=== PATIENT | male | born 1990 | race Caucasian/White ===

== ENCOUNTER 2019-10-10 18:23 | Emergency (ER) | payer OTHER ==
--- NOTE | 2019-10-10 18:26 | EDM.PDOC ---
ED HPI GENERAL MEDICAL PROBLEM - General Chief Complaint: Laceration Stated Complaint: FELL ON HIS RIGHT KNEE Time Seen by Provider: 10/10/19 18:26 Source of Information: Reports: Patient History Limitations: Reports: No Limitations - History of Present Illness INITIAL COMMENTS - FREE TEXT/NARRATIVE: HISTORY AND PHYSICAL: History of present illness: Patient is a 29-year-old male with right BTK amputation presents to the ED With complaint of right knee injury. Patient states he was washing his truck when he slipped and landed on his right knee and stump on a grate. Patient sustained a cut to the stump and states he is having shooting pains going up his leg. He had a revision to the BTKA in [facility] approximately 6 weeks ago. He is UTD on tetanus. Review of systems: As per history of present illness and below otherwise all systems reviewed and negative. Past medical history: As per history of present illness and as reviewed below otherwise noncontributory. Surgical history: As per history of present illness and as reviewed below otherwise noncontributory. Social history: No reported history of drug or alcohol abuse. Family history: As per history of present illness and as reviewed below otherwise noncontributory. Physical exam: General: Patient sitting comfortably in no acute distress and nontoxic appearing HEENT: Atraumatic, normocephalic, pupils reactive, negative for conjunctival pallor or scleral icterus, mucous membranes moist, throat clear, neck supple, nontender, trachea midline. No meningeal signs. Extremities: Right BTKA with a well healed incision site. There is a 1x1 cm laceration to the distal part of the stump. negative for cords or calf pain. Neurovascular unremarkable. Neuro: Awake, alert, oriented. Cranial nerves II through XII unremarkable. Cerebellum unremarkable. Motor and sensory unremarkable throughout. Exam nonfocal. Notes: Dr. Spicer, orthopedics, to the ED for wound care. Diagnostics: x-ray right knee Therapeutics: Toradol 60mg IM Prescriptions: Keflex Impression: Right leg injury Plan: Take antibiotic as instructed Follow up with Dr. Keyes in his office tomorrow (10/11/19) at 10am Return to ED as needed as discussed Definitive disposition and diagnosis as appropriate pending reevaluation and review of above. right leg Pain Score (Numeric/FACES): 5 - Related Data Allergies Allergy/AdvReac Type Severity Reaction Status Date / Time No Known Allergies Allergy Verified 10/10/19 18:24 Home Meds: Home Meds Bipolar Medication 10/10/19 [History] Cephalexin [Keflex] 500 mg PO BID 10 Days #20 capsule 10/10/19 [Rx] Hydrocodone/Acetaminophen [Hydrocodon-Acetaminoph 7.5-300] 10/10/19 [History] Testosterone [Androderm] 10/10/19 [History] ED ROS GENERAL - Review of Systems Review Of Systems: Comprehensive ROS is negative, except as noted in HPI. ED EXAM, SKIN/RASH Exam: See Below (see dictation) Exam Limited By: No Limitations General Appearance: Alert, WD/WN, No Apparent Distress Ears: Normal External Exam, Normal Canal, Hearing Grossly Normal, Normal TMs Nose: Normal Inspection, Normal Mucosa, No Blood Throat/Mouth: Normal Inspection, Normal Lips, Normal Teeth, Normal Gums, Normal Oropharynx, Normal Voice, No Airway Compromise Head: Atraumatic, Normocephalic Neck: Normal Inspection, Supple, Non-Tender, Full Range of Motion Respiratory/Chest: No Respiratory Distress, Lungs Clear, Normal Breath Sounds, No Accessory Muscle Use, Chest Non-Tender Cardiovascular: Normal Peripheral Pulses, Regular Rate, Rhythm, No Edema, No Gallop, No JVD, No Murmur, No Rub GI/Abdominal: Normal Bowel Sounds, Soft, Non-Tender, No Organomegaly, No Distention, No Abnormal Bruit, No Mass (Male) Exam: No Hernia, Normal Inspection, Normal Prostate, Circumcised Rectal (Males) Exam: Normal Exam, Normal Rectal Tone, Prostate Normal Back Exam: Normal Inspection, Full Range of Motion, NT Extremities: Normal Inspection, Normal Range of Motion, Non-Tender, No Pedal Edema, Normal Capillary Refill Neurological: Alert, Oriented, CN II-XII Intact, Normal Cognition, Normal Gait, Normal Reflexes, No Motor/Sensory Deficits Psychiatric: Normal Affect, Normal Mood Lymphatic: No Adenopathy Course - Vital Signs Last Recorded V/S: Last Vital Signs Temp 97.1 F 10/10/19 18:26 Pulse 83 10/10/19 18:26 Resp 18 10/10/19 18:26 BP 131/98 H 10/10/19 18:26 Pulse Ox 97 10/10/19 18:26 - Orders/Labs/Meds Meds: Medications Discontinued Medications Generic Name Dose Route Start Last Admin Trade Name Ankur PRN Reason Stop Dose Admin Ketorolac Tromethamine 60 mg 10/10/19 19:10 10/10/19 19:19 Toradol IM 10/10/19 19:11 60 mg ONETIME ONE Administration Lidocaine HCl 5 ml 10/10/19 19:03 10/10/19 19:19 Xylocaine-Mpf 1% INJECT 10/10/19 19:04 5 ml ONETIME ONE Administration Departure - Departure Time of Disposition: 20:28 Disposition: Home, Self-Care 01 Condition: Good Clinical Impression: Right leg injury, Leg wound, right - Discharge Information Prescriptions: Cephalexin [Keflex] 500 mg PO BID 10 Days #20 capsule Forms: ED Department Discharge Additional Instructions: The following information is given to patients seen in the emergency department who are being discharged to home. This information is to outline your options for follow-up care. We provide all patients seen in our emergency department with a follow-up referral. The need for follow-up, as well as the timing and circumstances, are variable depending upon the specifics of your emergency department visit. If you don't have a primary care physician on staff, we will provide you with a referral. We always advise you to contact your personal physician following an emergency department visit to inform them of the circumstance of the visit and for follow-up with them and/or the need for any referrals to a consulting specialist. The emergency department will also refer you to a specialist when appropriate. This referral assures that you have the opportunity for follow-up care with a specialist. All of these measure are taken in an effort to provide you with optimal care, which includes your follow-up. Under all circumstances we always encourage you to contact your private physician who remains a resource for coordinating your care. When calling for follow-up care, please make the office aware that this follow-up is from your recent emergency room visit. If for any reason you are refused follow-up, please contact the [facility] Emergency Department at and asked to speak to the emergency department charge nurse. [facility] [address] [place] [address] [id number] [place] [address] Take antibiotic as instructed Follow up with Dr. Keyes in his office tomorrow (10/11/19) at 10am Return to ED as needed as discussed Sepsis Event Note - Focused Exam Vital Signs: Vital Signs Temp Pulse Resp BP Pulse Ox 10/10/19 18:26 97.1 F 83 18 131/98 H 97 Date Exam was Performed: 10/10/19 Time Exam was Performed: 20:26
[2019-10-10] MEDS ORDERED: Ketorolac 60 MG/2 ML SDV IM ONE (19:10)
--- NOTE | 2019-10-10 19:30 | CR ---
INDICATION: Fall. Laceration. COMPARISON: None. FINDINGS/IMPRESSION: Right knee, three views. Status post [id number] amputation. No acute fracture or dislocation identified. Dictated by Prince Ryan MD @ 10/10/2019 7:28:24 PM Dictated by: Prince Ryan MD @ 10/10/2019 19:29:34 (Electronically Signed)
--- NOTE | 2019-10-12 09:40 | PCM.CONS ---
H&P History of Present Illness - General Date of Service: 10/10/19 Admit Problem/Dx: 29 yo male fell on right knee Source of Information: Patient, Provider, RN History Limitations: Reports: No Limitations - History of Present Illness Onset of Symptoms: Reports: Today, Sudden Duration of Symptoms: Reports: Hour(s): Location: Reports: Lower Extremity, Right Quality: Reports: Ache, Stabbing, Throbbing Severity: Moderate Improves with: Reports: Immobilization Worsens with: Reports: Movement Associated Symptoms: Reports: No Other Symptoms right leg Pain Score (Numeric/FACES): 2 - Related Data Allergies/Adverse Reactions: Allergies Allergy/AdvReac Type Severity Reaction Status Date / Time No Known Allergies Allergy Verified 10/11/19 13:14 Home Medications: Home Meds Acetaminophen/HYDROcodone [Roy 325-5 MG] 1 dose PO Q4H #20 tablet 07/24/19 [Rx ] Testosterone 250 mg PO DAILY 07/24/19 [History] Cephalexin [Keflex] 500 mg PO BID 10 Days #20 capsule 10/10/19 [Rx] Hydrocodone/Acetaminophen [Hydrocodon-Acetaminoph 7.5-300] 1 tab PO ASDIRECTED PRN 10/10/19 [History] Testosterone [Androderm] 200 mg IM WEEKLY 10/10/19 [History] ClonazePAM [KlonoPIN] 0.5 mg PO BEDTIME 10/11/19 [History] Sertraline [Zoloft] 50 mg PO QAM 10/11/19 [History] Past Medical History Psychiatric History: Reports: Bipolar - Infectious Disease History Infectious Disease History: Reports: None - Past Surgical History Musculoskeletal Surgical History: Reports: Amputation Other Musculoskeletal Surgeries/Procedures:: arm surgery Social & Family History - Family History Family Medical History: Noncontributory - Tobacco Use Smoking Status *Q: Never Smoker - Recreational Drug Use Recreational Drug Use: No H&P Review of Systems - Review of Systems: Review Of Systems: See Below General: Reports: No Symptoms HEENT: Reports: No Symptoms Pulmonary: Reports: No Symptoms Cardiovascular: Reports: No Symptoms Gastrointestinal: Reports: No Symptoms Genitourinary: Reports: No Symptoms Musculoskeletal: Reports: Leg Pain Skin: Reports: No Symptoms Psychiatric: Reports: No Symptoms Neurological: Reports: No Symptoms Hematologic/Lymphatic: Reports: No Symptoms Immunologic: Reports: No Symptoms Exam - Exam Exam: See Below - Vital Signs Vital Signs: Last Vital Signs Temp 36.2 C 10/10/19 18:26 Pulse 71 10/10/19 20:33 Resp 18 10/10/19 20:33 BP 126/80 10/10/19 20:33 Pulse Ox 96 10/10/19 20:33 Weight: 104.326 kg - Exam General: Alert, Oriented, Cooperative, Mild Distress HEENT: Conjunctiva Clear, Hearing Intact, Mucosa Moist & [place] Neck: Supple, Trachea Midline Lungs: Normal Respiratory Effort GI/Abdominal Exam: No Distention Extremities: Leg Pain, Other Skin: Warm, Wound, Incision Neuro Extensive - Mental Status: Alert, Oriented x3, Normal Mood/Affect, Normal Cognition, Memory Intact Psychiatric: Alert, Normal Affect, Normal Mood (2cm x 1.5 cm area of laceration with skin loss into subcutaneous tissue, recent bka revision six weeks ago) Sepsis Event Note - Evaluation Sepsis Screening Result: No Definite Risk Consult PN Assessment/Plan POD#: 0 Procedures: Procedures COMPLETE CBC W/AUTO DIFF WBC (09/01/19) COMPREHEN METABOLIC PANEL (09/01/19) EMERGENCY DEPT VISIT (07/24/19) MRI JOINT UPR EXTREM W/O DYE (04/12/19) PROTHROMBIN TIME (09/01/19) ROUTINE VENIPUNCTURE (09/01/19) THER/PROPH/DIAG INJ SC/IM (07/24/19) THROMBOPLASTIN TIME PARTIAL (09/01/19) URINALYSIS AUTO W/SCOPE (09/01/19) X-RAY EXAM L-S SPINE 2/3 VWS (07/24/19) X-RAY EXAM OF ELBOW (04/05/19) (1) Leg wound, right SNOMED Code(s): 555757496, 230129651 Code(s): S81.801A - UNSPECIFIED OPEN WOUND, RIGHT LOWER LEG, INITIAL ENCOUNTER Qualifiers: Encounter type: initial encounter Qualified Code(s): S81.801A - Unspecified open wound, right lower leg, initial encounter Problem List Initiated/Reviewed/Updated: Yes Plan: irrigated wound applied wound vac will see in clinic tomorrow plan to do irrigation and debridement, primary closure, wound vac in OR thursday
== END 2019-10-10 20:38 | disposition home or self-care (01) ==
LOC: MW.ED 18:23
DX: S81.801A Unspecified open wound, right lower leg, initial encounter (principal); W01.10XA Fall on same level from slipping, tripping and stumbling with subsequent striking against unspecified object, initial encounter
CPT/HCPCS: 73562; 96372; 99283; J1885; J2001

== ENCOUNTER 2019-10-12 06:50 | Day surgery (SDC) | payer OTHER ==
[~2019-10-12 06:50] MED LIST: Lactated Ringers 1,000 ML IV SCH
[2019-10-12] MEDS ORDERED: Phenylephrine 1% 10 MG/ML SDV ONE (07:03)
[2019-10-12] MEDS ORDERED: fentaNYL 100 MCG/2 ML SDV ONE ×2 (07:03→08:39)
[2019-10-12] MEDS ORDERED: Propofol 200 MG/20 ML SDV ONE ×2 (07:03→08:22)
[2019-10-12] MEDS ORDERED: ePHEDrine 50 MG/ML SDV ONE (07:03)
[2019-10-12] MEDS ORDERED: Sodium Chloride 0.9% 20 ML ONE (07:03)
[2019-10-12] MEDS ORDERED: Midazolam 1 MG/ML 2 ML SDV ONE ×2 (07:03→08:39)
[2019-10-12] MEDS ORDERED: Bupivacaine 0.5%/EPINEPHrine 1:200,000 10 ML SDV ONE (07:31)
--- NOTE | 2019-10-12 07:45 | PCM.PREANE ---
Preanesthetic Assessment - Anesthesia/Transfusion/Family Hx Anesthesia History: Prior Anesthesia Without Reaction Family History of Anesthesia Reaction: No Transfusion History: No Prior Transfusion(s) Intubation History: Unknown - Review of Systems General: No Symptoms Pulmonary: No Symptoms Cardiovascular: No Symptoms Gastrointestinal: No Symptoms Neurological: No Symptoms Other: Reports: None - Physical Assessment Height: 6 ft Weight: 106.594 kg ASA Class: 2 Mental Status: Alert & Oriented x3 Airway Class: Mallampati = 2 Dentition: Reports: Normal Dentition Thyro-Mental Finger Breadths: 3 Mouth Opening Finger Breadths: 2 ROM/Head Extension: Full Lungs: Clear to Auscultation, Normal Respiratory Effort Cardiovascular: Regular Rate, Regular Rhythm - Allergies Allergies/Adverse Reactions: Allergies Allergy/AdvReac Type Severity Reaction Status Date / Time No Known Allergies Allergy Verified 10/11/19 13:14 - Blood Blood Available: No - Anesthesia Plan Pre-Op Medication Ordered: None - Acknowledgements Anesthesia Type Planned: Spinal (general anesthesia back-up plan) Pt an Appropriate Candidate for the Planned Anesthesia: Yes Alternatives and Risks of Anesthesia Discussed w Pt/Guardian: Yes Pt/Guardian Understands and Agrees with Anesthesia Plan: Yes PreAnesthesia Questionnaire HEENT History: Reports: None Cardiovascular History: Reports: None Respiratory History: Reports: Other (See Below) (pneumonia in may that resembles Corrona virus infection) Gastrointestinal History: Reports: None Genitourinary History: Reports: None Musculoskeletal History: Reports: Fracture, Other (See Below) (rt. bellow knee open wound post amputation) Neurological History: Reports: Concussion, None Psychiatric History: Reports: Bipolar, None, PTSD Endocrine/Metabolic History: Reports: Obesity/BMI 30+ (BMI 31.9) Hematologic History: Reports: None Immunologic History: Reports: None Oncologic (Cancer) History: Reports: None Dermatologic History: Reports: None - Infectious Disease History Infectious Disease History: Reports: None - Past Surgical History HEENT Surgical History: Reports: None Cardiovascular Surgical History: Reports: None Respiratory Surgical History: Reports: None GI Surgical History: Reports: None Male Surgical History: Reports: None Endocrine Surgical History: Reports: None Neurological Surgical History: Reports: None Musculoskeletal Surgical History: Reports: Other (See Below) (s/p Rt. BKA 2 years ago sec. to infection, three revisions so far , last one 2 weeks ago.) Oncologic Surgical History: Reports: None Dermatological Surgical History: Reports: None - SUBSTANCE USE Smoking Status *Q: Never Smoker Recreational Drug Use History: No - HOME MEDS Home Medications: Home Meds Acetaminophen/HYDROcodone [Connell 325-5 MG] 1 dose PO Q4H #20 tablet 07/24/19 [Rx ] Testosterone 250 mg PO DAILY 07/24/19 [History] Cephalexin [Keflex] 500 mg PO BID 10 Days #20 capsule 10/10/19 [Rx] Hydrocodone/Acetaminophen [Hydrocodon-Acetaminoph 7.5-300] 1 tab PO ASDIRECTED PRN 10/10/19 [History] Testosterone [Androderm] 200 mg IM WEEKLY 10/10/19 [History] ClonazePAM [KlonoPIN] 0.5 mg PO BEDTIME 10/11/19 [History] Sertraline [Zoloft] 50 mg PO QAM 10/11/19 [History] - CURRENT (IN HOUSE) MEDS Current Meds: Current Medications Lactated Ringer's (Ringers, Lactated) 1,000 mls @ 100 mls/hr IV ASDIRECTED DANNY Discontinued Medications Bupivacaine HCl/Epinephrine Bitart (Marcaine 0.5%/Epinephrine 1:200,000) Confirm Administered Dose 10 ml .ROUTE .STK-MED ONE Stop: 10/12/19 07:32 Ephedrine Sulfate (Ephedrine Sulfate) Confirm Administered Dose 50 mg .ROUTE .STK-MED ONE Stop: 10/12/19 07:04 Fentanyl (Sublimaze) Confirm Administered Dose 100 mcg .ROUTE .STK-MED ONE Stop: 10/12/19 07:04 Sodium Chloride (Normal Saline) Confirm Administered Dose 20 mls @ as directed .ROUTE .STK-MED ONE Stop: 10/12/19 07:04 Midazolam HCl (Versed 1 Mg/Ml) Confirm Administered Dose 2 mg .ROUTE .STK-MED ONE Stop: 10/12/19 07:04 Phenylephrine HCl (Oracio-Synephrine) Confirm Administered Dose 10 mg .ROUTE .STK- MED ONE Stop: 10/12/19 07:04 Propofol (Diprivan 20 Ml) Confirm Administered Dose 200 mg .ROUTE .STK-MED ONE Stop: 10/12/19 07:04
--- NOTE | 2019-10-12 09:18 | PCM.OPNOTE ---
- General Post-Op/Procedure Note Date of Surgery/Procedure: 10/12/19 Operative Procedure(s): irrigation and debridement right bka. repair laceration chest Pre Op Diagnosis: laceration right bka. laceration right chest Post-Op Diagnosis: Same Anesthesia Technique: Combo Spinal/Epidural, Moderate Sedation Primary Surgeon: Jonathan Keyes Educational Aid: Dora Rand Educational Aid: Josefina Flores Pathology: aerobic and anaerobic culture EBL in mLs: 10 Complications: None Condition: Good
[2019-10-12] MEDS ORDERED: fentaNYL 100 MCG/2 ML SDV IVPUSH PRN (09:39)
[2019-10-12] MEDS ORDERED: Ketorolac 30 MG/ML SDV IVPUSH ONE (10:11)
[2019-10-12] MEDS: Acetaminophen/HYDROcodone 325-5 MG Tab PO PRN ×2 (10:25→12:40)
--- NOTE | 2019-10-12 10:29 | OR ---
SURGEON: Jonathan Keyes DATE OF PROCEDURE: 10/12/2019 PREOPERATIVE DIAGNOSES: Laceration, right below-knee amputation; and laceration, right chest. POSTOPERATIVE DIAGNOSES: Laceration, right below-knee amputation; and laceration, right chest. PROCEDURE: Irrigation and debridement with cultures, right below-knee amputation, and then repair of laceration, right chest. PRIMARY SURGEON: Jonathan Keyes DO REGISTERED NURSE SURGICAL SERVICES: FRED Calero Nurse practitioner, FRED Calero, played an essential role in assisting in this case, helping to position the patient, retract structures as needed, as well as suturing and cutting sutures as indicated. Her presence improved patient's safety and decreased operative time. SECOND REGISTERED NURSE SURGICAL SERVICES: Josefina Mcclendon FLUID: Lactated Ringer solution. ESTIMATED BLOOD LOSS: 10 mL. COMPLICATIONS: None. SPECIMEN: Aerobic and anaerobic cultures. DISCHARGE DISPOSITION: Stable to PACU. ANESTHESIA: Spinal plus moderate sedation. HISTORY AND INDICATION FOR THE PROCEDURE: I had seen the patient before in clinic, but then he came to the ER. He had previously had his BKA revised about 6 weeks ago in [place] and then he fell injuring it and he had quite a bit of bloody discharge from this area of the laceration near the stump. He was seen at the emergency department. They asked me to come in. I evaluated him, irrigated it with some saline, and then placed a wound VAC on it. I advised him that we should take him back for irrigation and debridement and then repair the laceration and then apply wound VAC. He came in this morning. He had fallen again and he had some lacerations on his chest, so we added that to the consent as well. Risks and goals of the procedure were explained to the patient. Informed consent was obtained. DETAILS OF PROCEDURE: The patient was seen preoperatively by myself and anesthesia staff in the preoperative holding area, where the operative site was marked. He was brought to the operative suite by the Anesthesia staff, where spinal sedation plus monitored sedation were administered. All extremities were found to be well padded. The right lower extremity was then prepped and draped in a sterile manner. Time-out was called identifying the correct patient, the correct procedure, and the correct site. Antibiotics were held until cultures were taken, which was 2 g of Ancef. I irrigated the wound with a Betadine infused irrigation and then wiped that off and then took my aerobic and anaerobic cultures. We then applied 2 g of Ancef IV. I then used a 15 blade to remove the roughened edges of the laceration, and then I used a curette to remove any other tissue, which might have been affected. I then undermined the subcutaneous tissue to mobilize it, so I could close better. I then copiously irrigated again with Betadine infused irrigation. Then, I applied 2-0 Prolene sutures in a vertical mattress for the tension sutures and then applied 2-0 horizontal mattress sutures, which were nylon. This closed very nicely. We then applied a wound VAC, which started, and then we removed our drapes. We then prepped the area of the chest with 2 lacerations. I had our family practice resident, Dr. Guadarrama go ahead and close that with the first laceration with 3 interrupted sutures of 3-0 nylon and then the second one with 2 sutures with a 3-0 nylon. We then applied Mastisol and Steri-Strips to the remainder of the lacerations, which could not be closed with suture. We then applied Betadine-soaked Adaptic, fluffs, and tape. The patient was allowed to awaken from conscious sedation and taken to the PACU in stable condition. [id number] / MODL /[id number]
[2019-10-12] MEDS: HYDROmorphone 2 MG/ML Syringe IVPUSH PRN ×2 (10:35→11:40)
--- NOTE | 2019-10-12 11:03 | PCM.POSTAN ---
POST ANESTHESIA ASSESSMENT - MENTAL STATUS Mental Status: Alert, Oriented - VITAL SIGNS Vital Signs: Last Vital Signs Temp 35.9 C L 10/12/19 09:14 Pulse 57 L 10/12/19 09:49 Resp 11 L 10/12/19 09:49 BP 108/57 L 10/12/19 09:49 Pulse Ox 94 L 10/12/19 09:49 - RESPIRATORY Respiratory Status: Respiratory Rate WNL, Airway Patent, O2 Saturation Stable - CARDIOVASCULAR CV Status: Pulse Rate WNL, Blood Pressure Stable - GASTROINTESTINAL GI Status: No Symptoms - PAIN Pain Score: 4 - POST OP HYDRATION Hydration Status: Adequate & Stable - OBSERVATIONS Free Text/Narrative:: No anesthesia problems
[2019-10-12] MEDS ORDERED: ceFAZolin/Dextrose,Iso-Osmotic 2 GM/50 ML Duplex Bag IV ONE (11:13)
[2019-10-12] MEDS ORDERED: Cyclobenzaprine 5 MG Tab PO PRN (11:46)
--- NOTE | 2019-10-12 13:49 | PCM48HPAN ---
Post Anesthesia Note - EVALUATION WITHIN 48HRS OF ANESTHETIC Vital Signs in Normal Range: Yes Patient Participated in Evaluation: Yes Respiratory Function Stable: Yes Airway Patent: Yes Cardiovascular Function Stable: Yes Hydration Status Stable: Yes Pain Control Satisfactory: Yes Nausea and Vomiting Control Satisfactory: Yes Mental Status Recovered: Yes Vital Signs: Last Vital Signs Temp 35.9 C L 10/12/19 09:14 Pulse 57 L 10/12/19 09:49 Resp 11 L 10/12/19 09:49 BP 108/57 L 10/12/19 09:49 Pulse Ox 94 L 10/12/19 09:49 - COMMENTS/OBSERVATIONS Free Text/Narrative:: No anesthesia problems
[2019-10-12] MEDS ORDERED: oxyCODONE 5 MG Tab PO ONE (14:39)
[2019-10-12] MEDS ORDERED: oxyCODONE ER 10 MG TAB.ER ONE (14:41)
== END 2019-10-12 15:15 | disposition home or self-care (01) ==
LOC: MW.SDS 06:50
PROVIDERS: ATTEND Orthopaedic Surgery
DX: S81.011A Laceration without foreign body, right knee, initial encounter (principal); S21.111A Laceration without foreign body of right front wall of thorax without penetration into thoracic cavity, initial encounter; Z89.511 Acquired absence of right leg below knee; E66.9 Obesity, unspecified; Z79.899 Other long term (current) drug therapy; X58.XXXA Exposure to other specified factors, initial encounter; Z68.31 Body mass index [BMI] 31.0-31.9, adult
CPT/HCPCS: 12004; 13121; 87070; 87075; 87077; 87186; 87205; A9270; J0690; J1170; J1885; J2250; J2370; J2704; J3010; J3490; J7120; 00400